=== PATIENT | male | born 1975 | race Caucasian/White ===

== ENCOUNTER → 2021-07-31 | Outpatient (CLI) | payer BC ==
[~2021-07-31] MED LIST: AMARYL4 MG PO; CYMBALTA30 MG PO; GABAPENTIN800 MG PO; GLUCOPHAGE500 MG PO; PERCOCET 5/325 T1 EA PO; PRAVACHOL20 MG PO; VOLTAREN100 GM TP; XANAX1 MG PO
[2021-07-31 12:02] LABS: HEMOGLOBIN 13.2 gm/dl (14.0-17.5); RED BLOOD COUNT 4.36 M/UL (4.20-5.50); WHITE BLOOD COUNT 6.1 K/UL (4.5-11.0)
[2021-07-31 12:48] LABS: BUN/CREATININE RATIO 21 (0-10)
== END ==
LOC: LAB 11:32
PROVIDERS: Podiatrist Foot & Ankle Surgery
DX: M14.671 Charcot's joint, right ankle and foot (principal); E11.40 Type 2 diabetes mellitus with diabetic neuropathy, unspecified
CPT/HCPCS: 36415; 80053; 85025

== ENCOUNTER → 2021-08-01 | Outpatient (CLI) | payer BC ==
[~2021-08-01] VITALS: Ht 190.5 cm; Wt 127.5 kg
== END ==
LOC: OPSV 08:54
DX: A52.16 Charcot's arthropathy (tabetic) (principal)
CPT/HCPCS: 96365; J2430; J7030

== ENCOUNTER → 2021-08-29 | Outpatient (CLI) | payer BC ==
[~2021-08-29] VITALS: Ht 190.5 cm; Wt 127.5 kg
== END ==
LOC: OPSV 11:00
DX: M14.671 Charcot's joint, right ankle and foot (principal)
CPT/HCPCS: 96365; 96366; J2430; J7030

== ENCOUNTER → 2021-08-29 | Outpatient (CLI) | payer BC | LOC: KOH-I 08:30 | DX: M79.671 Pain in right foot (principal) | CPT/HCPCS: 73630 ==

== ENCOUNTER → 2021-09-12 | Outpatient (CLI) | payer BC ==
[~2021-09-12] VITALS: Ht 190.5 cm; Wt 127.5 kg
== END ==
LOC: OPSV 09:00
DX: A52.16 Charcot's arthropathy (tabetic) (principal)
CPT/HCPCS: 96365; 96366; J2430; J7030

== ENCOUNTER → 2021-09-12 | Outpatient (CLI) | payer BC | LOC: KOH-I 08:35 | DX: M79.671 Pain in right foot (principal); M14.671 Charcot's joint, right ankle and foot; Z89.411 Acquired absence of right great toe | CPT/HCPCS: 73630 ==

== ENCOUNTER → 2021-09-20 | Outpatient (CLI) | payer BC | LOC: KOH-I 14:00 | DX: M14.671 Charcot's joint, right ankle and foot (principal); M20.5X1 Other deformities of toe(s) (acquired), right foot | CPT/HCPCS: 73700 ==

== ENCOUNTER → 2021-09-26 | Outpatient (CLI) | payer BC | LOC: OPSV 09:00 | DX: M14.671 Charcot's joint, right ankle and foot (principal) | CPT/HCPCS: 96365; 96366; J2430; J7030 ==

== ENCOUNTER → 2021-12-23 | Outpatient (CLI) | payer OTHER | LOC: KOH-I 11:27 | DX: M79.671 Pain in right foot (principal); A52.16 Charcot's arthropathy (tabetic) | CPT/HCPCS: 73610; 73630; 73650 ==

== ENCOUNTER → 2021-12-24 | Outpatient (CLI) | payer OTHER | LOC: MRI 14:47 | DX: M14.671 Charcot's joint, right ankle and foot (principal); L97.412 Non-pressure chronic ulcer of right heel and midfoot with fat layer exposed; M25.374 Other instability, right foot | CPT/HCPCS: 73718 ==

== ENCOUNTER → 2022-01-16 | Outpatient (CLI) | payer OTHER | LOC: KOH-I 09:09 | DX: M79.671 Pain in right foot (principal); M25.571 Pain in right ankle and joints of right foot; M21.6X1 Other acquired deformities of right foot | CPT/HCPCS: 73610; 73630 ==